=== PATIENT | female | born 1945 | race Caucasian/White ===

== ENCOUNTER → 2017-05-25 04:00 | Outpatient (CLI) | payer MEDICARE, SELFPAY ==
[2017-05-31 14:22] LABS: Occult Blood,Stool Negative (Negative)
== END ==
PROVIDERS: Visit Provider Nurse Practitioner Family
DX: R19.7 Diarrhea, unspecified (principal)
CPT/HCPCS: 82272; G0328

== ENCOUNTER → 2017-05-26 05:00 | Outpatient (CLI) | payer MEDICARE, SELFPAY ==
[2017-05-31 14:22] LABS: Occult Blood,Stool Negative (Negative)
== END ==
PROVIDERS: Visit Provider Nurse Practitioner Family
DX: R19.7 Diarrhea, unspecified (principal)
CPT/HCPCS: 82272; G0328

== ENCOUNTER → 2017-05-27 02:00 | Outpatient (CLI) | payer MEDICARE, SELFPAY ==
[2017-05-31 14:22] LABS: Occult Blood,Stool Negative (Negative)
== END ==
PROVIDERS: Visit Provider Nurse Practitioner Family
DX: R19.7 Diarrhea, unspecified (principal)
CPT/HCPCS: 82272; G0328

== ENCOUNTER → 2017-05-31 13:40 | Outpatient (CLI) | payer MEDICARE, SELFPAY | PROVIDERS: Visit Provider Nurse Practitioner Family | DX: R19.7 Diarrhea, unspecified (principal) ==

== ENCOUNTER → 2017-06-04 14:42 | Outpatient (CLI) | payer MEDICARE, OTHER, SELFPAY | PROVIDERS: Visit Provider Physician Assistant | DX: R19.7 Diarrhea, unspecified (principal) | CPT/HCPCS: 87045 ==

== ENCOUNTER → 2018-07-08 15:45 | Outpatient (CLI) | payer MEDICARE, OTHER, SELFPAY ==
--- NOTE | 2018-07-08 15:50 | MM_ITS ---
MM Dig screening mamm BI w/CAD CAD Screening COMPARISON: Digital mammograms with CAD 11/04/2015 and postbiopsy left mammogram 06/25/2016 INDICATION: There is a history of breast cancer patient maternal grandmother diagnosed after menopause. There has been previous biopsy left breast for benign disease. TECHNIQUE: Standard CC and MLO images were obtained. R2 CAD reviewed. FINDINGS: The breasts are composed almost entirely of fat with very minimal fibro glandular densities in each breast. There is a biopsy clip left breast and there is a mole marker right breast. There is a mole marker left breast. There is no suspicious lesion and there are no suspicious microcalcifications. IMPRESSION: Fatty type breast parenchyma with no suspicious lesion seen BI-RADS Category: 2 Benign Finding(s) RECOMMENDED FOLLOW-UP: 1YR - 1 YEAR FOLLOW-UP (A letter has been sent to the patient regarding results of the study.)
== END ==
PROVIDERS: PCP Family Medicine; Visit Provider Nurse Practitioner Family
DX: Z12.31 Encounter for screening mammogram for malignant neoplasm of breast (principal)
CPT/HCPCS: 77067

== ENCOUNTER → 2019-03-10 12:45 | Outpatient (CLI) | payer MEDICARE, OTHER, SELFPAY ==
--- NOTE | 2019-03-10 | CA_ITS ---
APPROVED REPORT Biogeographer: ALLYSON Laterality: Bilateral Risk Factors Hypertension: Hyperlipidemia Diabetes Smoking Doppler Spectral Velocity Analysis ECA (R) 82.30/9.10 cm/s ECA (L) 142.50/9.60 cm/s dICA (R) 67.60/18.90 cm/s dICA (L) 50.90/11.50 cm/s Grady (R) 77.00/25.40 cm/s Grady (L) 99.20/22.20 cm/s pICA (R) 64.80/18.70 cm/s pICA (L) 102.10/27.90 cm/s dCCA (R) 55.00/15.60 cm/s dCCA (L) 56.10/13.90 cm/s pCCA (R) 71.90/10.30 cm/s pCCA (L) 77.70/17.40 cm/s Vert (R) 50.10/9.40 cm/s Vert (L) 46.20/9.60 cm/s ICA/CCA 1.40 ICA/CCA 1.80 Findings Duplex evaluation demonstrates stenosis of the right proximal internal carotid artery <20% with PSV <140 cm/sec, EDV <100 cm/sec, and IC/CC Ratio <4.0.Duplex evaluation demonstrates stenosis of the left proximal internal carotid artery <20% with PSV <140 cm/sec, EDV <100 cm/sec, and IC/CC Ratio <4.0. Conclusion Duplex evaluation demonstrates stenosis of the right proximal internal carotid artery <20% with PSV <140 cm/sec, EDV <100 cm/sec, and IC/CC Ratio <4.0.Duplex evaluation demonstrates stenosis of the left proximal internal carotid artery <20% with PSV <140 cm/sec, EDV <100 cm/sec, and IC/CC Ratio <4.0. Electronically signed by : Antoine Berumen MD 03/10/2019 17:43:20
--- NOTE | 2019-03-10 13:21 | MR_ITS ---
PROCEDURE: MR HEAD/BRAIN WO CON CLINICAL INDICATION: MEMORY LOSS, DIZZINESS Memory loss and dizziness COMPARISON: No exams were available for comparison TECHNIQUE: Routine multiplanar multi echo sequences are performed without gadolinium enhancement. FINDINGS: No midline shift, mass effect, intracranial hemorrhage, or hydrocephalus. The cerebellopontine angles, cerebellum, brainstem and mid brain have an unremarkable appearance. No evidence of acute infarction. Some nonspecific periventricular and subcortical T2 white matter hyperintensities which do not demonstrate restricted diffusion or enhancement. No enhancing lesions are evident. The hippocampal gyri are unremarkable and the temporal horns are symmetric. No intra-axial or extra-axial hemorrhage. The pituitary, optic chiasm, corpus callosum, and craniocervical junction have an unremarkable appearance. No mastoid effusion or sinus air-fluid level. IMPRESSION: No acute intracranial findings Dictated by: Antoine Berumen MD 03/13/2019 09:27 Electronically signed by Antoine Berumen MD in [place] 03/13/2019 09:27
== END ==
PROVIDERS: PCP Family Medicine; Visit Provider Nurse Practitioner Family
DX: R41.3 Other amnesia (principal); R42 Dizziness and giddiness
CPT/HCPCS: 70551; 93880

== ENCOUNTER → 2019-09-29 07:44 | Outpatient (CLI) | payer MEDICARE, OTHER, SELFPAY ==
--- NOTE | 2019-09-29 07:49 | US_ITS ---
PROCEDURE: US EXTREMITY LT LIMITED CLINICAL INDICATION: LUMP OF LT UPPER EXTREMITY COMPARISON: No exams were available for comparison FINDINGS: General survey is performed of the palpable abnormality in the left arm anteriorly. Real-time images are submitted as well static images. No cyst or solid mass evident. IMPRESSION: Unremarkable ultrasound the left arm in the area of palpable concern. If symptoms persist, consider MRI for further evaluation. Dictated by: Antoine Berumen MD 09/29/2019 08:40 Antoine Berumen MD in [place] 09/29/2019 08:40
== END ==
PROVIDERS: PCP Family Medicine; Visit Provider Nurse Practitioner Family
DX: R22.32 Localized swelling, mass and lump, left upper limb (principal)
CPT/HCPCS: 76882

== ENCOUNTER → 2021-01-06 13:36 | Outpatient (CLI) | payer MEDICARE, OTHER, SELFPAY | PROVIDERS: PCP Nurse Practitioner Family; Visit Provider Urology | DX: E78.5 Hyperlipidemia, unspecified (principal); I10 Essential (primary) hypertension; R06.00 Dyspnea, unspecified; R07.9 Chest pain, unspecified; R94.31 Abnormal electrocardiogram [ECG] [EKG]; Z72.0 Tobacco use; Z82.49 Family history of ischemic heart disease and other diseases of the circulatory system | CPT/HCPCS: 93270 ==

== ENCOUNTER → 2021-01-07 07:05 | Outpatient (CLI) | payer MEDICARE, OTHER, SELFPAY ==
--- NOTE | 2021-01-07 07:06 | NM_ITS ---
APPROVED REPORT Exam: Nuclear Stress Test Indication: Chest pain, SOB, HTN, DM, High cholesterol, Tobacco use, Family history Patient Location: Outpatient Stress Tech: Isabella Coleman [place] Tech:Karen Jones, ARRT, RT (R)(N) Ht: 5 ft 2 in Wt: 170 lbs Bra Size: 38C HR: 52 bpm BP: 141/58 mmHg BSA: 1.78 m2 BMI: 31.0 History: Chest pain, SOB, HTN, DM, High cholesterol, Tobacco use, Family history Procedure: Patient received a 0.4 mg of intravenous Lexiscan, resting heart rate 52 bpm, resting blood pressure 141/58 mmHg, with Lexiscan maximum heart rate achived was 96 bpm which is Less than 85 % of the maximum predicted heart rate and blood pressure was 156/74 mmHg. With Lexiscan, patient denied any complaint of chest pain. Electrocardiogram Resting electrocardiogram shows sinus rhythm, with Lexiscan there is less than 1.[address] segment depression noted from the baseline EKG. The EKG portion of the Lexiscan is nondiagnostic. Cardiac Stress and Resting SPECT Images: Cardiac Stress and Resting SPECT images were obtained using technetium 99m Myoview 30.4 mCi stress and 10.05 mCi at rest. Gated SPECT for analysis of segmental wall motion and calculation of the ejection fraction also done. Prone images were not obtained. Cardiac stress and resting SPECT images show uniform myocardial activity without segmental perfusion abnormality, computer derived ejection fraction is over 50% with no regional wall motion abnormality, right ventricle is normal size and contractility. Computer derived transient ischemic dilatation does not appear to be accurate. Conclusion: 1. The EKG portion of the Lexiscan Myoview is nondiagnostic. 2. No scintigraphic evidence of reversible ischemia seen, computer derived ejection fraction is over 50% with no regional wall motion abnormality, right ventricle is normal size and contractility. 3. Likely normal Lexiscan Myoview study. Electronically signed by : Roc Boykin MD 01/07/2021 19:57:27
--- NOTE | 2021-01-07 07:06 | CA_ITS ---
APPROVED REPORT Exam: Pharmacologic Technologist: Isabella Coleman, Ht: 5 ft 4 in Wt: 177 lbs BSA: 1.86 m2 HR: 51 bpm BP: 141/58 mmHg Rhythm: Sinus vlad, cannot R/O old septal RI, NS ST abn inferiorly Medical History Medical History: HTN, Hyperlipidemia, Diabetic ??? Noninsulin, Smoking Medications: Atenolol,,,,, Simvastatin,,,,, Asa,,,,, Losartan,,,,, PaROXETINE,,,,, LanTUS,,,,, Levocetirizine,,,,, Fexofenadine,,,,, ClonAZapam,,,,, Cardiac Risk Factors: HTN, Hyperlipidemia, Diabetes (non-insulin), FHX of CAD, Smoking Stress Test Details Test: LEXISCAN HR Resting HR: 52 bpm Max Heart Rate (APMHR): 144 bpm Max HR Achieved: 96 bpm Target HR (85% APMHR): 122 bpm % of APMHR: 66 Recovery HR: 69 bpm BP Resting BP: 141/58 mmHg Max BP: 156/74 mmHg Recovery BP: 138.0/46.0 mmHg ECG Resting ECG: Sinus vlad, cannot R/O old septal RI, NS ST abn inferiorly Clinical Exercise duration: 04:05 min Highest Stage Achieved: Exercise capacity: 1.0 METs Stress ECG Conclusion During lexiscan pt experinced SOA and N/V. No CP noted. No arrhythmias noted. Mild exaggeration of baseline abn. Unremarkable lexiscan stress. Myoview images reported separately. Electronically signed by : Roc Boykin MD 01/07/2021 19:39:23
--- NOTE | 2021-01-07 07:06 | CA_ITS ---
APPROVED REPORT EXAM: Comprehensive 2D, Doppler, and color-flow Echocardiogram Graphic Arts Instructor: Maliha Moran RT(R) Ht: 5 ft 4 in Wt: 177lbs BSA: 1.86 BP: 140/70 mmHg Indications: CP, smoker, palpitations, HTN, DM, PARK, family history of HD, abn EKG 2D Dimensions LVOT 1.80 cm (M/F) 1.5-2.5 LVEF (Yoder's) 50.30 % F: 54 - 74 LV Volume 65.80 mL F: 46 - 106 LV Volume Index 35.56 mL/m2 F: 29 - 61 LA Volume 36.00 mL LA Volume Index 19.45 mL/m2 (M/F) 16-34 M-Mode Dimensions RVDd 2.65 cm (0.9-2.6) LA Diam 3.98 cm (1.9-4.0) LVDd 4.15 cm (3.5-5.7) Ao Diam 2.22 cm (2.0-3.7) LVDs 3.04 cm (3.5-5.7) IVSd 0.68 cm (0.6-1.1) PWd 0.75 cm (0.6-1.1) EF (Teich) 52.60% FS 26.70% EDV (Teich) 76.40 mL ESV (Teich) 36.20 mL LV Diastology E Decel Time 237.00 (160-240 msec) E/A Ratio 0.8 MED E' 5.10 (< 7 cm/sec) E'/MED E' Ratio 19.37 (>14) LAT E' 6.60 (<10 cm/sec) E/LAT E' Ratio 14.97 (>14) Mitral Valve MV E Max Addison. 99.00 (40-130 cm/s) MV A Velocity 124.00 (40-130 cm/s) E/A Ratio 0.79 MV Decel. Time 237.00 (160-240 ms) MV PHT 69.00 ms Left Ventricle Left atrium is mildly enlarged, left ventricle is normal size, mild concentric left ventricular hypertrophy, visually estimated ejection fraction 55% with no regional wall motion abnormality. Grade 1 diastolic dysfunction seen with tissue Doppler evidence of raise left atrial pressure. Right Ventricle Right atrium and right ventricle mildly enlarged with normal contractility. Aortic Valve Aortic valve is minimally thickened and fibrosed, there is no aortic stenosis or aortic insufficiency. Mitral Valve Mitral valve is grossly normal, there is trace mitral regurgitation. Tricuspid Valve Tricuspid grossly normal, there is trace tricuspid regurgitation, tricuspid regurgitation jet velocity is inadequate for calculation of the right ventricular systolic pressure. Pulmonic Valve Pulmonic valve is poorly visualized. Great Vessels Aortic root is normal size. Inferior vena cava is normal size with normal inspiratory collapse. Pericardium No significant pericardial effusion noted. Conclusion 1. Biatrial enlargement, normal left ventricular size, mild concentric left ventricular hypertrophy, visually estimated ejection fraction 55% with no regional wall motion abnormality, grade 1 diastolic dysfunction seen with tissue Doppler evidence of raise left atrial pressure. 2. Mildly enlarged right ventricle with normal contractility. 3. Trace mitral and tricuspid regurgitation. 4. No significant pericardial effusion noted. Electronically signed by : Roc Boykin MD 01/07/2021 20:31:23
--- NOTE | 2021-01-07 09:31 | HMH.ITSHM ---
Current Home Medications as stated by this patient Lesli Dang or payable representative. []SIMVASTATIN PAROXETINE LOSARTAN LEVOCERTIRIZINE INSULIN FEXOFENADINE CLONAZEPAM ATENOLOL ASA
== END ==
PROVIDERS: PCP Family Medicine; Visit Provider Urology
DX: E78.5 Hyperlipidemia, unspecified (principal); I10 Essential (primary) hypertension; R06.00 Dyspnea, unspecified; R07.9 Chest pain, unspecified; R94.31 Abnormal electrocardiogram [ECG] [EKG]; Z72.0 Tobacco use; Z82.49 Family history of ischemic heart disease and other diseases of the circulatory system
CPT/HCPCS: 78452; 93017; 93306; A9502; J2785

== ENCOUNTER → 2021-01-28 11:50 | Outpatient (CLI) | payer MEDICARE, OTHER, SELFPAY ==
[2021-01-28 12:33] LABS: Basophils # 0.1 K/mm3 (0-0.2); Basophils % 0.8 % (0.1-2.0); Eosinophils # 0.4 K/mm3 (0.0-0.4); Eosinophils % 3.4 % (0.1-12.0); Hematocrit 45.1 % (37.0-47.0); Hemoglobin 15.5 g/dL (12.2-16.2); Lymphocytes # 2.8 K/mm3 (0.7-4.5); Lymphocytes % 22.6 % (10-50); Mean Corpuscular HGB Conc 34.4 g/dL (31.8-35.4); Mean Corpuscular Volume 92.9 fl (81-99); Mean Platelet Volume 9.1 fl (7.4-10.4); Monocytes # 0.7 K/mm3 (0.1-1.0); Monocytes % 5.7 % (1.7-9.3); Neutrophils # 8.3 K/mm3 (1.8-7.8); Neutrophils % 67.5 % (37.0-80.0); Platelet Count 253 K/mm3 (142-424); Red Blood Count 4.85 M/mm3 (4.20-5.40); Red Cell Distribution Width 13.1 % (11.5-17.5); White Blood Count 12.3 K/mm3 (4.8-10.8)
[2021-01-28 12:49] LABS: Chloride 106 mmol/L (98-107); Sodium 139 mmol/L (136-145)
[2021-01-28 12:50] LABS: Potassium 3.9 mmoL/L (3.5-5.1)
[2021-01-28 12:53] LABS: Anion Gap 12.9 mEq/L (5-15); Blood Urea Nitrogen 11 mg/dl (7-17); Calcium 8.7 mg/dl (8.4-10.2); Carbon Dioxide 24 mmol/L (22.0-30.0); Estimated Glomerular Filt Rate 70 ml/min (>60); GFR (African American) 84 ML/MIN (>60); Glucose 152 mg/dl (74-100)
== END ==
PROVIDERS: Visit Provider Nurse Practitioner Family
DX: E78.5 Hyperlipidemia, unspecified (principal); I10 Essential (primary) hypertension; I20.8 Other forms of angina pectoris; I63.9 Cerebral infarction, unspecified; R06.00 Dyspnea, unspecified; R94.31 Abnormal electrocardiogram [ECG] [EKG]; R94.39 Abnormal result of other cardiovascular function study; Z82.49 Family history of ischemic heart disease and other diseases of the circulatory system
CPT/HCPCS: 36415; 80048; 85025

== ENCOUNTER 2021-02-03 07:33 | Day surgery (SDC) | payer MEDICARE, OTHER, SELFPAY ==
[2021-02-03] VITALS (15 sets, daily range): BP systolic 115–166; BP diastolic 62–86; PULSE 50–64; RESP 13–19; TEMP 36.8; O2SAT 90–98; BMI 29.8
--- NOTE | 2021-02-03 07:06 | IR_ITS ---
APPROVED REPORT Patient Location: Outpatient Observer Electrical Prospecting: CARRILLO Pillai RT (R) PROCEDURES Left heart catheterization Left ventriculogram Selective coronary angiogram Drug-eluting stent deployment to the proximal and mid circumflex artery Drug-eluting stent deployment to the proximal and mid dominant right coronary INDICATION Accelerated angina pectoris, Coronary artery disease, Informed consent was obtained prior to the procedure. COMPLICATIONS NONE Estimated Blood Loss: LESS THAN 10 ML TECHNIQUE One percent lidocaine used to anesthetize the right anterior aspect of the wrist. The right radial artery was accessed via the Seldinger technique. A 6 [place]ic sheath was placed in the right radial artery. 2.5 mg of verapamil, 800 mcg of nitroglycerin, 1mg Lidocaine and 5000 U Heparin were given through the arterial sheath. The trap catheter was also used to perform left heart catheterization, left ventriculogram and selective coronary angiogram. At the end of the procedure therapeutic heparin was administered giving a therapeutic ACT and the guide catheter was placed in the left main artery where a Choice PT extra-support wire was placed distally. A 3 mm x 18 mm resolute Jeferson stent was then deployed in the proximal to mid segment at 20 dulce reducing the 80% concentric stenosis to 0%. MARILEE-3 flow was present before and after the procedure. Following this the guide catheter was placed in the right coronary artery where the same wire was placed distally and a 3 mm x 38 mm resolute [place] stent was deployed at 24 dulce reducing the severe stenosis to 0%. MARILEE-3 flow was present before and after the procedure. At the end the procedure the apparatus was removed the sheath was removed good hemostasis was achieved using TR banding patient was transferred to the postop holding in stable condition ANGIOGRAPHIC RESULTS The left main artery Normal The left anterior descending artery Has proximal and mid vessel diffuse 10% luminal irregularities The circumflex artery Is a nondominant yet still large vessel with a mid vessel concentric 80% stenosis followed by additional 20% stenoses The right coronary artery Is a dominant vessel and has a proximal 20% followed by a proximal to mid vessel concentric 70% stenosis followed by 50% stenosis and then tandem 40% stenoses. The CRUZ ventriculogram reveals Hyperdynamic 75% The left ventricular end-diastolic pressure 30 mmHg IMPRESSION Severe two-vessel coronary disease as described above Successful stenting of the proximal to mid circumflex artery severe disease reduced to 0% with 1 drug-eluting stent Successful stenting of the proximal to mid dominant right coronary artery severe disease reduced to 0% with 1 drug-eluting stent Hyperdynamic ventricle Severely elevated LVEDP PLAN 1. Dual antiplatelet therapy 2. And Lipitor 20 mg a day for coronary artery disease and hyperlipidemia with diabetes 3. Increase losartan from 50 mg a day to 100 mg a day 4. Change atenolol to carvedilol 12.5 mg p.o. twice daily per the Renee trial 5. Cardiac rehabilitation 6. Avoidance of tobacco products 7. Treatment of diastolic dysfunction 8. Patient will require some low-dose diuretics. This should be started as an outpatient Electronically signed by : Amado Javier MD 02/03/2021 10:33:26
[2021-02-03 10:45] LABS: CATHL Activated Clotting Time 316 SEC (74-125)
--- NOTE | 2021-02-03 14:08 | HMH.PHACLD ---
Lesli Dang has received discharge medication counseling on the following medications: PATIENT IS BEING DISCHARGED WITH PRESCRIPTIONS FOR CARVEDILOL 12.5 MG BID (MD STOPPING ATENOLOL), LOSARTAN 100 MG DAILY (MD INCREASING DOSE FROM 50 MG), AND BRILINTA 90 MG BID. PATIENT IS CURRENTLY TAKING ASPIRIN 81 MG CHEWABLE DAILY AND SIMVASTATIN 20 MG HS.
== END 2021-02-03 14:12 | disposition home or self-care (01) ==
LOC: CATHLAB 07:36
PROVIDERS: PCP Nurse Practitioner Family; Visit Provider Internal Medicine
DX: E78.5 Hyperlipidemia, unspecified (principal); I10 Essential (primary) hypertension; I25.118 Atherosclerotic heart disease of native coronary artery with other forms of angina pectoris; R06.00 Dyspnea, unspecified; R94.31 Abnormal electrocardiogram [ECG] [EKG]; R94.39 Abnormal result of other cardiovascular function study; Z82.49 Family history of ischemic heart disease and other diseases of the circulatory system; E11.9 Type 2 diabetes mellitus without complications; Z79.4 Long term (current) use of insulin; Z79.899 Other long term (current) drug therapy; Z20.822 Contact with and (suspected) exposure to COVID-19
CPT/HCPCS: 85347; 92928; 93458; 99152; C1725; C1769; C1874; C1876; C9600; C9803; J1644; Q9967; U0003; U0005

== ENCOUNTER → 2021-02-03 08:07 | Outpatient (CLI) | payer MEDICARE, OTHER, SELFPAY ==
[2021-02-03 08:11] LABS: Coronavirus 19, PCR Not Detected (NotDetected); Influenza A, PCR Not Detected (NotDetected); Influenza B, PCR Not Detected (NotDetected)
== END ==
PROVIDERS: Visit Provider Internal Medicine
DX: Z20.822 Contact with and (suspected) exposure to COVID-19 (principal)
CPT/HCPCS: C9803; U0003; U0005

== ENCOUNTER → 2021-03-03 12:16 | Outpatient (CLI) | payer MEDICARE, OTHER, SELFPAY ==
[2021-03-03 13:00] LABS: Basophils # 0.2 K/mm3 (0-0.2); Basophils % 1.9 % (0.1-2.0); Eosinophils # 0.5 K/mm3 (0.0-0.4); Hematocrit 50.8 % (37.0-47.0); Hemoglobin 16.3 g/dL (12.2-16.2); Mean Corpuscular Hemoglobin 31.6 pg (27.0-31.2); Mean Corpuscular Volume 98.8 fl (81-99); Mean Platelet Volume 9.1 fl (7.4-10.4); Monocytes # 0.6 K/mm3 (0.1-1.0); Monocytes % 4.8 % (1.7-9.3); Neutrophils # 7.7 K/mm3 (1.8-7.8); Neutrophils % 64.3 % (37.0-80.0); Platelet Count 286 K/mm3 (142-424); Red Blood Count 5.15 M/mm3 (4.20-5.40); Red Cell Distribution Width 13.4 % (11.5-17.5)
[2021-03-03 14:07] LABS: Alanine Aminotransferase 38 U/L (12-78); Albumin Level 4.4 g/dl (3.5-5.0); Alkaline Phosphatase 90 U/L (38-126); Aspartate Amino Transferase 45 U/L (14-36); Bilirubin,Direct 0.2 mg/dl (0.0-0.4); Bilirubin,Indirect 0.3 mg/dL (0.0-0.9); Bilirubin,Total 0.5 mg/dl (0.2-1.3); Bilirubin,Unconjugated 0.3 mg/dL (0.0-1.1); Blood Urea Nitrogen 20 mg/dl (7-17); Calcium 9.1 mg/dl (8.4-10.2); Carbon Dioxide 21 mmol/L (22.0-30.0); Chloride 103 mmol/L (98-107); Cholesterol 165 mg/dl (140-200); Estimated Glomerular Filt Rate 54 ml/min (>60); GFR (African American) 65 ML/MIN (>60); Glucose 174 mg/dl (74-100); HDL Cholesterol 33 mg/dl (40-60); Sodium 134 mmol/L (136-145); Total Protein,Serum 7.9 g/dl (6.3-8.2); Triglycerides 293 mg/dl (30-150); VLDL Cholesterol 59 mg/dL (0-40)
[2021-03-03 14:18] LABS: Direct LDL Cholesterol 90.03 mg/dL (100-129)
== END ==
PROVIDERS: PCP Nurse Practitioner Family; Visit Provider Physician Assistant
DX: E78.2 Mixed hyperlipidemia (principal); I10 Essential (primary) hypertension; I25.10 Atherosclerotic heart disease of native coronary artery without angina pectoris; R06.00 Dyspnea, unspecified; R94.31 Abnormal electrocardiogram [ECG] [EKG]
CPT/HCPCS: 36415; 80048; 80061; 80076; 85025

== ENCOUNTER 2021-04-13 14:45 | Observation (INO) | payer MEDICARE, OTHER, SELFPAY ==
[2021-04-13 14:57] VITALS: BP 129/62; PULSE 82; O2SAT 91
[2021-04-13 15:09] VITALS: BP 116/56; PULSE 81; RESP 16; TEMP 36.9; O2SAT 93; BMI 29.9
[2021-04-13 15:30] VITALS: BP 126/60; PULSE 78; O2SAT 96
--- NOTE | 2021-04-13 15:48 | CT_ITS ---
PROCEDURE INFORMATION: Exam: CT Abdomen And Pelvis Without Contrast Exam date and time: 04/13/2021 3:48 PM Age: 75 years old Clinical indication: Other: Rectal bleeding, abdominal pain. ; Additional info: Rectal bleeding/abd pain TECHNIQUE: Imaging protocol: Computed tomography of the abdomen and pelvis without contrast. Radiation optimization: All CT scans at this facility use at least one of these dose optimization techniques: automated exposure control; mA and/or kV adjustment per patient size (includes targeted exams where dose is matched to clinical indication); or iterative reconstruction. COMPARISON: US EXTREMITY LT LIMITED 09/29/2019 7:53 AM FINDINGS: Lungs: Scarring/atelectasis at the lung bases without acute findings. Diaphragm: A small hiatal hernia is present. Liver: The liver demonstrates punctate calcifications, consistent with remote granulomatous organism exposure. The liver is otherwise unremarkable. Gallbladder and bile ducts: Multiple calcified gallstones are present. The gallbladder is otherwise unremarkable. There is no evidence of biliary ductal dilation. Pancreas: Normal. No ductal dilation. Spleen: The spleen demonstrates punctate calcifications, consistent with remote granulomatous organism exposure. The spleen is otherwise unremarkable. Adrenal glands: 2.1 cm left adrenal nodule with Hounsfield units of -7.7. This is compatible with a benign adenoma. Mild senile thickening of the right adrenal gland. Adrenal glands otherwise unremarkable. Kidneys and ureters: Normal. No hydronephrosis. Stomach and bowel: Wall thickening and submucosal edema with pericolonic fat stranding appreciated throughout the descending colon. No other segmental bowel wall thickening. Moderate constipation. There is no evidence of intestinal obstruction. Appendix: Normal appendix. Intraperitoneal space: There is no evidence of free intraperitoneal or pelvic fluid. There is no free intraperitoneal air. Vasculature: The vasculature demonstrates diffuse moderate atherosclerotic calcification. Lymph nodes: No retroperitoneal, pelvic, or mesenteric adenopathy. Urinary bladder: The bladder is decompressed. Reproductive: There has been a hysterectomy. Bones/joints: No acute skeletal pathology. Moderate multilevel degenerative changes of the spine, as manifested by multilevel anterior osteophytes and multilevel decrease in intervertebral disc space. Soft tissues: Calcified injection granulomas are noted in the subcutaneous tissues of the buttocks. IMPRESSION: 1. Moderate to severe acute colitis involving predominantly the descending colon. 2. No bowel obstruction or bowel perforation. 3. Incidental findings as above. COMMENTS: Consistent with the [employer]'s Incidental Findings Committee white paper (J Am Irina Radiol 2017): For any incidental adrenal lesion greater than 1 cm but less than 4 cm classified in this report as benign, likely benign, or containing fat (including classification as an adenoma or myelolipoma), no follow-up imaging is recommended per consensus recommendations based on imaging criteria. Further lab evaluation could be pursued if warranted based on clinical findings.
--- NOTE | 2021-04-13 15:48 | HMH.EDGENADL ---
ED Disposition Clinical Impression: Colitis, Rectal bleeding Disposition: Admitted As Inpatient Condition on Discharge: Fair - Critical Care Critical Care Time: No Attestation: On 04/13/21, the high probability of a clinically significant, sudden or life threatening deterioration of the following system(s) required my full and direct attention, intervention and personal management. The time I documented below is in addition to time spent performing reported procedures but includes the following listed in this critical care notation. Medical Decision Making - Festus Inquiry Pt receiving controlled substance: No Vital Signs: 04/13/21 14:57 04/13/21 15:09 04/13/21 15:30 Temperature 98.5 F Temperature Source Oral Pulse Rate 82 78 Pulse Rate [Left Radial] 81 Respiratory Rate 16 Blood Pressure 129/62 126/60 Blood Pressure [Right Arm] 116/56 L Blood Pressure Mean [Right Arm] 76 02 Sat by Pulse Oximetry 91 L 93 L 96 Oxygen Delivery Method Room Air 04/13/21 18:26 Temperature 98.5 F Temperature Source Oral Pulse Rate 74 Pulse Rate [Left Radial] Respiratory Rate 16 Blood Pressure 121/71 Blood Pressure [Right Arm] Blood Pressure Mean [Right Arm] 02 Sat by Pulse Oximetry Oxygen Delivery Method Room Air - Lab Data Lab Results 04/13/21 16:00: Stool Occult Blood Positive A 04/13/21 16:03: WBC 17.2 H, RBC 4.47, Hgb 14.2, Hct 44.2, MCV 98.7, MCH 31.8 H, MCHC 32.2, RDW 13.8, Plt Count 302, MPV 8.7, Neut % (Auto) 81.6 H, Lymph % (Auto) 11.6, [place] % (Auto) 4.1, Eos % (Auto) 2.0, Baso % (Auto) 0.7, Neut # (Auto) 14.0 H, Lymph # (Auto) 2.0, [place] # (Auto) 0.7, Eos # (Auto) 0.4, Baso # (Auto) 0.1, Total Counted 100, Neutrophils % (Manual) 76, Lymphocytes % (Manual) 17, Monocytes % (Manual) 7, Platelet Estimate Normal, Hypochromasia 1+ 04/13/21 16:03: PT 11.6, INR 1.03 04/13/21 16:03: Sodium 130 L, Potassium 4.5, Chloride 100, Carbon Dioxide 21 L, Anion Gap 13.5, BUN 20 H, Creatinine 1.30 H, Estimated Creat Clear 43, Estimated GFR 40 L, Est GFR ( Amer) 48 L, Glucose 199 H, Calcium 8.4, Total Bilirubin 1.1, AST 32, ALT 31, Alkaline Phosphatase 90, Total Protein 7.7, Albumin 3.9, Globulin 3.8 H, Albumin/Globulin Ratio 1.0 L 04/13/21 18:00: SARS-CoV-2 (PCR) Not detected, Influenza A Untype (PCR) Not detected, Influenza Type B (PCR) Not detected Result diagrams: 04/13/21 16:03 04/13/21 16:03 Orders (Tests/Meds): ED MEDICATIONS Generic Name Dose Route Start Last Admin Trade Name Freq PRN Reason Stop Dose Admin Acetaminophen 650 mg 04/13/21 19:37 Acetaminophen 325mg Tab PO 05/13/21 19:36 Q4HP PRN Fever or Mild Pain Carvedilol 12.5 mg 04/13/21 21:00 Carvedilol 12.5mg Tablet PO 05/13/21 20:59 BID [facility] Ertapenem 1 gm/ Sodium 50 mls @ 100 mls/hr 04/14/21 17:45 Chloride IV 04/27/21 17:44 Q24H JOE Metronidazole 500 mg in 100 mls @ 100 mls/hr 04/14/21 01:45 Flagyl 500mg/100ml Ivpb IV 04/27/21 17:44 Q8H JOE Sodium Chloride 1,000 mls @ 75 mls/hr 04/13/21 19:45 Sod Chlor 0.9% 1000ml Bag IV 05/13/21 19:44 .[id number] [facility] Insulin Human Lispro 0 unit 04/13/21 21:00 Humalog 100 Units/Ml 3ml Vial (Ssi) SQ 05/13/21 20:59 ACHS JOE Protocol Morphine Sulfate 4 mg 04/13/21 19:37 Morphine 4mg/Ml Syringe IV 05/13/21 19:36 Q4HP PRN Severe Pain Non-Formulary Medication 100 mg 04/13/21 19:37 Losartan Potassium [Cozaar 50mg Tablets] PO 05/13/21 19:36 QDAY JOE Non-Formulary Medication 30 mg 04/13/21 19:37 Paroxetine Hcl [Paroxetine Hcl] PO 05/13/21 19:36 ONCE JOE Non-Formulary Medication 20 mg 04/14/21 09:00 Simvastatin PO 05/14/21 08:59 DAILY JOE Non-Formulary Medication 50 mg 04/14/21 09:00 Spironolactone PO 05/14/21 08:59 DAILY JOE Ondansetron HCl 4 mg 04/13/21 19:37 Ondansetron 4mg/2ml Vial IV 05/13/21 19:36 Q8HP PRN Nausea Sodium Chloride 10 ml
[2021-04-13 16:03] LABS: Occult Blood,Stool Positive (Negative)
[2021-04-13 16:12] LABS: Basophils # 0.1 K/mm3 (0-0.2); Basophils % 0.7 % (0.1-2.0); Eosinophils # 0.4 K/mm3 (0.0-0.4); Hematocrit 44.2 % (37.0-47.0); Hemoglobin 14.2 g/dL (12.2-16.2); Lymphocytes % 11.6 % (10-50); Mean Corpuscular HGB Conc 32.2 g/dL (31.8-35.4); Mean Corpuscular Hemoglobin 31.8 pg (27.0-31.2); Mean Corpuscular Volume 98.7 fl (81-99); Mean Platelet Volume 8.7 fl (7.4-10.4); Monocytes # 0.7 K/mm3 (0.1-1.0); Monocytes % 4.1 % (1.7-9.3); Neutrophils % 81.6 % (37.0-80.0); Platelet Count 302 K/mm3 (142-424); Red Blood Count 4.47 M/mm3 (4.20-5.40); Red Cell Distribution Width 13.8 % (11.5-17.5); White Blood Count 17.2 K/mm3 (4.8-10.8)
[2021-04-13 16:23] LABS: MANUAL DIFFERENTIAL MANUAL DIFFERENTIAL (MANUAL DIFF)
[2021-04-13 16:25] LABS: Chloride 100 mmol/L (98-107); Potassium 4.5 mmoL/L (3.5-5.1); Sodium 130 mmol/L (136-145)
[2021-04-13 16:28] LABS: Alanine Aminotransferase 31 U/L (12-78); Albumin Level 3.9 g/dl (3.5-5.0); Alkaline Phosphatase 90 U/L (38-126); Anion Gap 13.5 mEq/L (5-15); Aspartate Amino Transferase 32 U/L (14-36); Bilirubin,Total 1.1 mg/dl (0.2-1.3); Blood Urea Nitrogen 20 mg/dl (7-17); Carbon Dioxide 21 mmol/L (22.0-30.0); Creatinine Clearance Estimated 43 mL/min (50-200); Estimated Glomerular Filt Rate 40 ml/min (>60); GFR (African American) 48 ML/MIN (>60); Globulin 3.8 g/dL (1.3-3.2); Total Protein,Serum 7.7 g/dl (6.3-8.2)
[2021-04-13 16:29] LABS: Calcium 8.4 mg/dl (8.4-10.2); Glucose 199 mg/dl (74-100)
[2021-04-13 16:30] LABS: INR 1.03 (0.9-1.1); Prothrombin Time 11.6 seconds (10.1-12.5)
[2021-04-13 16:56] LABS: Hypochromasia 1+; Lymphocytes % 17 % (10-50); Monocytes % 7 % (2-9); Neutrophils % 76 % (42-76); Platelet Estimate Normal; Total Cells Counted 100
--- NOTE | 2021-04-13 17:38 | PC.NURSE ---
Talking to about admission
[2021-04-13 18:26] VITALS: BP 121/71; PULSE 74; RESP 16; TEMP 36.9; O2SAT 94
[2021-04-13 18:30] LABS: Coronavirus 19, PCR Not Detected (NotDetected); Influenza A, PCR Not Detected (NotDetected); Influenza B, PCR Not Detected (NotDetected)
[2021-04-13 18:48] VITALS: BP 107/58; PULSE 70; RESP 16; TEMP 36.5; O2SAT 94; BMI 28.3
[2021-04-13 20:00] VITALS: BP 103/41; PULSE 66; RESP 18; TEMP 36.4; O2SAT 93
[2021-04-13 20:49] LABS: POC Glucose,Bedside 150 (70-110)
[2021-04-14 04:00] VITALS: BP 119/46; PULSE 64; RESP 16; TEMP 36.6; O2SAT 90
--- NOTE | 2021-04-14 04:00 | PC.NURSE ---
Pt is A/O x4, pt voiced no c/o of pain/N/V throughout the night. Pt did not have a BM this shift thus far, but is aware that we need a sample when she is able to. Pt can independently get up and go the bathroom. Pt remains on RA with O2 >90%.
[2021-04-14 05:01] VITALS: BMI 28.0
[2021-04-14 05:32] LABS: POC Glucose,Bedside 115 (70-110)
[2021-04-14 06:14] LABS: Basophils # 0.1 K/mm3 (0-0.2); Basophils % 0.6 % (0.1-2.0); Eosinophils # 0.4 K/mm3 (0.0-0.4); Eosinophils % 2.6 % (0.1-12.0); Hematocrit 41.3 % (37.0-47.0); Hemoglobin 13.4 g/dL (12.2-16.2); Lymphocytes # 3.3 K/mm3 (0.7-4.5); Lymphocytes % 23.6 % (10-50); Mean Corpuscular HGB Conc 32.4 g/dL (31.8-35.4); Mean Corpuscular Hemoglobin 32.5 pg (27.0-31.2); Mean Corpuscular Volume 100.4 fl (81-99); Mean Platelet Volume 8.8 fl (7.4-10.4); Monocytes # 0.8 K/mm3 (0.1-1.0); Monocytes % 5.9 % (1.7-9.3); Neutrophils # 9.5 K/mm3 (1.8-7.8); Neutrophils % 67.3 % (37.0-80.0); Platelet Count 223 K/mm3 (142-424); Red Blood Count 4.11 M/mm3 (4.20-5.40); Red Cell Distribution Width 13.8 % (11.5-17.5); White Blood Count 14.1 K/mm3 (4.8-10.8)
--- NOTE | 2021-04-14 07:32 | HMH.PHAVTE ---
[facility] Pharmacy VTE Monitoring - Patient Demographics Admission date: 04/13/21 Report Date: 04/14/21 Time: 07:32 Allergies/Adverse Reactions: Patient Allergies Penicillins Allergy (Intermediate, Verified 04/13/21 21:39) I-RASH Sulfa (Sulfonamide Antibiotics) Allergy (Intermediate, Verified 04/13/21 21:39) I-HIVES Height: 1.6 m Weight: 71.631 kg Patient Problems: Current Active Problems (Last Updated 02/17/21 @ 11:58 by Hiwot Pittman RN) Colitis (Acute) Rectal bleeding (Acute) - VTE Risk Labs: VTE Related Lab Results Hgb 13.4 g/dL (12.2-16.2) 04/14/21 06:00 Hct 41.3 % (37.0-47.0) 04/14/21 06:00 Plt Count 223 K/mm3 (142-424) D 04/14/21 06:00 PT 11.6 seconds (10.1-12.5) 04/13/21 16:03 INR 1.03 (0.9-1.1) 04/13/21 16:03 BUN 20 mg/dl (7-17) H 04/13/21 16:03 Creatinine 1.30 mg/dl (0.52-1.04) H 04/13/21 16:03 Estimated Creat Clear 43 mL/min (50-200) 04/13/21 16:03 Was VTE Risk Assessment Performed: No VTE Score: 4 VTE Risk Level: Low Risk Clinical Trial Participant: No - Prophylaxis VTE Prophylaxis Ordered?: Yes Types of VTE Prophylaxis: TEDS Knee High
--- NOTE | 2021-04-14 07:36 | HMH.HPDC ---
General - General Admission date:: 04/13/21 Discharge date: 04/14/21 *Admission Date: 04/13/21 *Chief complaint: Blood in stool *History of present illness: 75-year-old female presented to the emergency department yesterday with 24 hours of bright red blood in her stool. Patient reports symptoms began on Wednesday, April 12 and this had been preceded by 3-day course of diarrhea. She never had fevers. She denies any significant abdominal pain. Patient was able to maintain her appetite. She has no history of blood in her stool. It has been 14 years since her last colonoscopy. Family became concerned because of the passage of blood and she presented to the emergency department. Patient underwent CT scan which showed some descending colitis. She was afebrile. She had mild leukocytosis. She was admitted and placed on Invanz and Flagyl. [facility] History I have reviewed the patient's past medical history: Yes Medical History: Reports:: Diabetes Mellitus Type 2, Hyperlipidemia, Hypertension Denies:: Cancer, Diabetes Mellitus Type 1, Internal Pacemaker, Lung Disease, MRSA, Seizures *Have you ever received a pneumonia vaccine?: Yes *Have you received a flu vaccine this season?: Yes Other Surgeries: Yes: Cardiac Catheterization, Dilation and Curettage. No: Pacemaker Amputation: No Fractures: No - *Social History Smoking Status: Current every day smoker Tobacco Type: cigarettes # Packs/Day (cigarettes): 1 Alcohol Intake: never Substance Use Type: denies use *Occupational Status:: retired Housing: house Household Members: none *Travel in the last 8 weeks: None Family Hx:: No significant family history Review of Systems - Review of Systems Review of systems:: pertinent systems reviewed and negative unless documented below Exam Vital signs and Labs for Last 24 Hours: Temp Pulse Resp BP Pulse Ox 97.9 F 64 16 119/46 L 90 L 04/14/21 04:00 04/14/21 04:00 04/14/21 04:00 04/14/21 04:00 04/14/21 04:00 Laboratory Results - last 24 hr 04/13/21 16:00: Stool Occult Blood Positive A 04/13/21 16:03: WBC 17.2 H, RBC 4.47, Hgb 14.2, Hct 44.2, MCV 98.7, MCH 31.8 H, MCHC 32.2, RDW 13.8, Plt Count 302, MPV 8.7, Neut % (Auto) 81.6 H, Lymph % (Auto) 11.6, [place] % (Auto) 4.1, Eos % (Auto) 2.0, Baso % (Auto) 0.7, Neut # (Auto) 14.0 H, Lymph # (Auto) 2.0, [place] # (Auto) 0.7, Eos # (Auto) 0.4, Baso # (Auto) 0.1, Total Counted 100, Neutrophils % (Manual) 76, Lymphocytes % (Manual) 17, Monocytes % (Manual) 7, Platelet Estimate Normal, Hypochromasia 1+ 04/13/21 16:03: PT 11.6, INR 1.03 04/13/21 16:03: Sodium 130 L, Potassium 4.5, Chloride 100, Carbon Dioxide 21 L, Anion Gap 13.5, BUN 20 H, Creatinine 1.30 H, Estimated Creat Clear 43, Estimated GFR 40 L, Est GFR ( Amer) 48 L, Glucose 199 H, Calcium 8.4, Total Bilirubin 1.1, AST 32, ALT 31, Alkaline Phosphatase 90, Total Protein 7.7, Albumin 3.9, Globulin 3.8 H, Albumin/Globulin Ratio 1.0 L 04/13/21 18:00: SARS-CoV-2 (PCR) Not detected, Influenza A Untype (PCR) Not detected, Influenza Type B (PCR) Not detected 04/13/21 20:37: POC Glucose 150 H 04/14/21 05:19: POC Glucose 115 H 04/14/21 06:00: WBC 14.1 H, RBC 4.11 L, Hgb 13.4, Hct 41.3, MCV 100.4 H, MCH 32.5 H, MCHC 32.4, RDW 13.8, Plt Count 223 D, MPV 8.8, Neut % (Auto) 67.3, Lymph % (Auto) 23.6, [place] % (Auto) 5.9, Eos % (Auto) 2.6, Baso % (Auto) 0.6, Neut # (Auto) 9.5 H, Lymph # (Auto) 3.3, [place] # (Auto) 0.8, Eos # (Auto) 0.4, Baso # (Auto) 0.1 I & O for Last 24 hours: Intake & Output 04/11/21 04/12/21 04/13/21 04/14/21 11:59 11:59 11:59 11:59 Output Total 100 / 100 Balance -100 / -100 Weight 157 lb 14.709 oz - Constitutional no acute distress - *Routine HEENT Exam Head: Present: normocephalic Eye: Present: EOMI, PERRL ENT: Present: mucous membranes moist - *Routine Neck Exam Present: supple. Absent: lymphadenopathy - *Routine Respiratory Exam Present: CTA bilaterally - *Routine Cardiovascular Exam Present
[2021-04-14 08:00] VITALS: BP 114/42; PULSE 58; RESP 18; TEMP 36.4; O2SAT 93
--- NOTE | 2021-04-14 10:14 | HMH.PHAINT ---
HOME MEDICATION LIST VERIFIED USING LIST FROM DR BARRERA' OFFICE, CARDIOLOGY OFFICE AND PT INTERVIEW
[2021-04-14 11:46] LABS: POC Glucose,Bedside 108 (70-110)
--- NOTE | 2021-04-15 14:44 | CARE MANAGER ---
Contacted patient regarding follow up to discharge from hospital. Patient states she was not prescribed home with any new medications. She states she has eaten fruit and oatmeal. Discussed the effect of raw fruits and vegetables on her digestive system and to do a soft bland diet for a while until her colon was less inflamed. She states she is going to the doctor this afternoon at 3pm to follow up. LESLIE Rock
== END 2021-04-14 13:08 | disposition home or self-care (01) ==
LOC: ER 14:56 → 2ND 18:22
PROVIDERS: Admitting Provider Emergency Medicine; Emergency Provider Emergency Medicine; PCP Nurse Practitioner Family; Visit Provider Family Medicine
DX: K52.9 Noninfective gastroenteritis and colitis, unspecified (principal); E11.9 Type 2 diabetes mellitus without complications; Z79.4 Long term (current) use of insulin; Z79.899 Other long term (current) drug therapy; I10 Essential (primary) hypertension; E78.5 Hyperlipidemia, unspecified; F17.210 Nicotine dependence, cigarettes, uncomplicated; Z79.01 Long term (current) use of anticoagulants; Z20.822 Contact with and (suspected) exposure to COVID-19
CPT/HCPCS: G0378; 36415; 74176; 80053; 82272; 82962; 85007; 85025; 85610; 99285; C9803; G0328; J1335; U0003; U0005

== ENCOUNTER → 2021-08-06 13:59 | Outpatient (CLI) | payer MEDICARE, OTHER, SELFPAY | PROVIDERS: PCP Nurse Practitioner Family; Visit Provider Surgery | DX: Z01.812 Encounter for preprocedural laboratory examination (principal); Z20.822 Contact with and (suspected) exposure to COVID-19; Z12.11 Encounter for screening for malignant neoplasm of colon | CPT/HCPCS: C9803; U0003; U0005 ==

== ENCOUNTER 2021-08-08 10:18 | Day surgery (SDC) | payer MEDICARE, OTHER, SELFPAY ==
[2021-08-04 13:27] VITALS: BMI 30.1
[2021-08-08] VITALS (7 sets, daily range): BP systolic 96–158; BP diastolic 56–80; PULSE 64–81; RESP 16–20; TEMP 36.1; O2SAT 94–97
--- NOTE | 2021-08-08 11:31 | HMH.ANESCL ---
[facility] Anesthesia Checklist - Structural Data Planned Operative Procedure/s: Colonoscopy Consent for Planned Operative Procedure(s) Verified: Yes - NPO Status Verified Time NPO: 07:00 - Additional verifications Anesthesia Reactions: Yes (nausea, vomiting) - Airway Assessment C-Spine Mobility Assessed: Yes TMJ Mobility Assessed: Yes Dentition: Dentures-good fit - Neurological Assessment Level of Consciousness: Awake Hx Seizures: No Numbness or tingling in extremities: No - Anesthesia Plan Anesthesia Risk discussed: Yes Anesthesia Plan: Verified ASA Class: III Anesthesia Type: MAC [facility] History I have reviewed the patient's past medical history: Yes Medical History: Reports:: Diabetes Mellitus Type 2, Hyperlipidemia, Hypertension Denies:: Cancer, Diabetes Mellitus Type 1, Internal Pacemaker, Lung Disease, MRSA, Seizures *Have you ever received a pneumonia vaccine?: Yes *Have you received a flu vaccine this season?: Yes Anesthesia experience/problems:: PONV Other Surgeries: Yes: Cardiac Catheterization, Dilation and Curettage. No: Pacemaker Amputation: No Fractures: No - *Social History Last grade of school completed: 11th or 12th Smoking Status: Current every day smoker Tobacco Type: cigarettes # Packs/Day (cigarettes): 1 Alcohol Intake: never Substance Use Type: denies use *Occupational Status:: retired Housing: house Household Members: none *Travel in the last 8 weeks: None Family Hx:: No significant family history
[2021-08-08 11:37] LABS: POC Glucose,Bedside 151 (70-110)
--- NOTE | 2021-08-08 12:56 | P.PCN_ITS ---
- Procedure: Date: 08/08/21 Patient Date of :: 1945 Procedure Performed:: Total colonoscopy with numerous polypectomy Indications:: Patient is a 75-year-old female. She had been admitted in April with diarrhea and rectal bleeding. CT scan revealed evidence of colitis. She was scheduled for colonoscopy. Those symptoms had resolved. She states that her last colonoscopy was many years ago. Performing Provider:: Lawrence Jesus MD Referring Provider:: Brittni Brady Sedation:: MAC sedation Procedure:: Patient was taken to the endoscopy procedure room. She was positioned in lateral decubitus position. Adequate intravenous sedation was achieved with anesthesia titration of propofol. Variable stiffness Olympus colonoscope was inserted via the anus. Particulate stool was immediately encountered. Colonoscope was ultimately advanced to the cecum which required some abdominal pressure due to redundancy of the sigmoid colon. Colonic preparation was fair as there was opaque liquid and particulate liquid stool throughout the colon. With thorough irrigation and suctioning this allowed for some visualization but this was suboptimal. Colonoscope was slowly withdrawn through the colon with careful surveillance. There were several polyps encountered. These were removed with a variety of technique. Please see findings below. Retroflexion was unable to be performed within the rectum. Colonoscope was withdrawn. Findings:: She had a rather large ridge polyp in the descending colon which was removed w ith hot snare. It appeared to be removed in its entirety and the area was injected with a limited amount of Liliana ink for marking and And proximal sigmoid colon there were 4 polyps removed. 2 of these were removed with hot snare and 2 with cold snare. In the mid sigmoid colon there was a polyp removed with cold snare Distal sigmoid colon there were a couple of polyps removed with cold snare At the rectosigmoid region there was a polyp removed with hot snare. She had a total of at least 9 polyps. Most notable polyp was descending colon polyp which was a moderate ridge polyp requiring removal with hot snare and injection of Liliana ink No evidence of any colitis. Colonic preparation was fair and suboptimal Recommendations:: Follow-up colonoscopy pending pathology. Given the number of polyps, several of which appeared complex, and suboptimal preparation likely 1 to 2 years Complications:: None immediately apparent Estimated blood obtained (mL): 3
== END 2021-08-08 13:51 | disposition home or self-care (01) ==
LOC: OUTP 10:19
PROVIDERS: PCP Nurse Practitioner Family; Visit Provider Surgery
PROC: 0DJD8ZZ Inspection of Lower Intestinal Tract, Via Natural or Artificial Opening Endoscopic (ICD-10-PCS; principal; 2021-08-08 11:30)
DX: K63.5 Polyp of colon; E11.9 Type 2 diabetes mellitus without complications; E78.5 Hyperlipidemia, unspecified; I10 Essential (primary) hypertension; Z72.0 Tobacco use; Z79.4 Long term (current) use of insulin; Z79.899 Other long term (current) drug therapy; Z87.19 Personal history of other diseases of the digestive system
CPT/HCPCS: 45385; 82962; 88305; J2405; J2704

== ENCOUNTER → 2021-12-02 07:41 | Outpatient (CLI) | payer MEDICARE, OTHER, SELFPAY ==
--- NOTE | 2021-12-02 07:51 | CA_ITS ---
FINAL REPORT TECHNIQUE: Grayscale, color Doppler and duplex Doppler ultrasound of the kidneys, aorta and renal arteries was performed. Multiple velocities were measured. CLINICAL HISTORY: .HTN FINDINGS: Aorta velocity: 102 cm/sec Right kidney: 9.5 cm. No evidence of hydronephrosis or mass. Right intrarenal RI: Borderline elevated at 0.83 Right renal artery velocity: 259 cm/sec. Right RAR (Renal artery-Aortic Ratio): 2.5 Left Kidney: 9.1 cm. No evidence of hydronephrosis or mass. Left intrarenal RI: Borderline elevated at 0.83 Left renal artery velocity: 2.6 cm/sec. Left RAR (Renal Artery-Aortic Ratio): 263 IMPRESSION: Findings consistent with bilateral less than 50% renal artery stenosis. Consider CT angiogram or postcontrast MR angiogram would be more sensitive for evaluation of possible renal artery stenosis. Borderline abnormal RI bilaterally. Reviewed, Interpreted and Dictated by Lawrence Peralta III, MD Transcribed by Tori Coreas Authenticated and . [facility]
--- NOTE | 2021-12-02 08:40 | US_ITS ---
FINAL REPORT TECHNIQUE: Ultrasound images of the kidneys and bladder were obtained. CLINICAL HISTORY: BEGNIGN ESSENTIAL HYPERTENSION FINDINGS: The right kidney measures 9.6 cm in length. It is normal in echogenicity. There is no hydronephrosis. The left kidney measures 9.2 cm in length. It is normal in echogenicity. There is no hydronephrosis. The spleen is unremarkable. IMPRESSION: Unremarkable renal ultrasound. Reviewed, Interpreted and Dictated by Lawrence Peralta III, MD Transcribed by Felicia Thao Authenticated and . [facility]
== END ==
PROVIDERS: PCP Nurse Practitioner Family; Visit Provider Internal Medicine Nephrology
DX: I10 Essential (primary) hypertension (principal)
CPT/HCPCS: 76770; 93976

== ENCOUNTER → 2022-01-07 13:10 | Outpatient (CLI) | payer MEDICARE, OTHER, SELFPAY ==
[2022-01-07 13:30] LABS: Microscopic, Urine URINE MICROSCOPIC (MICROSCOPIC)
--- NOTE | 2022-01-07 13:44 | XR_ITS ---
FINAL REPORT CLINICAL HISTORY: LOW BACK INJURY,LOW BACK PAIN x fall 2 weeks ago FINDINGS: LUMBAR SPINE Five views were obtained. There is no acute fracture. There is no malalignment. There is moderate disc space narrowing at L3-4. There is mild loss of height involving the superior endplate of L3, loss of height measures about 10%. There is no soft tissue abnormality. IMPRESSION: Moderate disc space narrowing at L3-4. No acute bony abnormality. Reviewed, Interpreted and Dictated by Geovanny Donato MD Transcribed by Clarissa Monahan Authenticated and [facility]
[2022-01-07 14:10] LABS: Basophils # 0.1 K/mm3 (0-0.2); Basophils % 0.5 % (0.1-2.0); Eosinophils # 0.3 K/mm3 (0.0-0.4); Eosinophils % 2.5 % (0.1-12.0); Hematocrit 42.5 % (37.0-47.0); Hemoglobin 13.4 g/dL (12.2-16.2); Lymphocytes # 3.1 K/mm3 (0.7-4.5); Lymphocytes % 29.7 % (10-50); Mean Corpuscular HGB Conc 31.5 g/dL (31.8-35.4); Mean Corpuscular Hemoglobin 31.2 pg (27.0-31.2); Mean Corpuscular Volume 99.1 fl (81-99); Mean Platelet Volume 8.8 fl (7.4-10.4); Monocytes # 0.6 K/mm3 (0.1-1.0); Monocytes % 5.4 % (1.7-9.3); Neutrophils # 6.4 K/mm3 (1.8-7.8); Neutrophils % 61.9 % (37.0-80.0); Platelet Count 309 K/mm3 (142-424); Red Blood Count 4.29 M/mm3 (4.20-5.40); Red Cell Distribution Width 13.7 % (11.5-17.5); White Blood Count 10.4 K/mm3 (4.8-10.8)
[2022-01-07 14:57] LABS: Hemoglobin A1C 6.7 % (4.0-6.0)
[2022-01-07 15:08] LABS: Albumin Level 4.1 g/dl (3.5-5.0); Anion Gap 13.7 mEq/L (5-15); Blood Urea Nitrogen 25 mg/dl (7-17); Calcium 9.2 mg/dl (8.4-10.2); Carbon Dioxide 24 mmol/L (22.0-30.0); Chloride 104 mmol/L (98-107); Creatine Kinase 74 U/L (30-135); Estimated Glomerular Filt Rate 34 ml/min (>60); GFR (African American) 41 ML/MIN (>60); Glucose 143 mg/dl (74-100); Phosphorous 4.5 mg/dl (2.5-4.5); Potassium 4.7 mmoL/L (3.5-5.1); Sodium 137 mmol/L (136-145)
[2022-01-07 15:19] LABS: Intact Parathyroid Hormone 199.4 pg/mL (7.5-53.5)
[2022-01-07 15:26] LABS: 25-OH Vitamin D, Total 35.2 ng/mL (30-100)
[2022-01-07 16:55] LABS: Appearance,Urine CLEAR (Clear); Bilirubin,Urine Negative (Negative); Blood, Urine Negative (Negative); Color,Urine YELLOW (Yellow); Glucose,Urine (UA) 2+ (Negative); Ketones,Urine Negative (Negative); Leukocyte Esterase,Urine 1+ (Negative); Nitrate,Urine Negative (Negative); PH,Urine 6.5 (5.0-8.5); Protein,Urine Negative (Negative); Specific Gravity, Urine 1.015 (1.005-1.030); Urobilinogen,Urine 0.2 EU/dl (0.2)
[2022-01-07 17:43] LABS: Creatinine,Urine Random 102 mg/dL (Not Estab.)
[2022-01-07 18:05] LABS: Squamous Epithelial Cell,Urine Occasional #/hpf (0-5); WBC,Urine 20-50 #/hpf (0-3)
[2022-01-09 16:54] LABS: Immunoglobulin A, Qn 347 mg/dL (64-422); Immunoglobulin G, Qn 1443 mg/dL (586-1602); Immunoglobulin M, Qn 110 mg/dL (26-217)
== END ==
PROVIDERS: PCP Nurse Practitioner Family; Visit Provider Hospitalist
DX: N28.9 Disorder of kidney and ureter, unspecified (principal); M54.50 Low back pain, unspecified; S39.92XA Unspecified injury of lower back, initial encounter; Z68.30 Body mass index [BMI] 30.0-30.9, adult; Z79.899 Other long term (current) drug therapy
CPT/HCPCS: 36415; 72110; 80069; 81001; 82306; 82550; 82570; 82784; 83036; 83970; 84155; 85025; 86334; 86335; 87086

== ENCOUNTER → 2022-01-26 08:56 | Outpatient (CLI) | payer MEDICARE, OTHER, SELFPAY ==
--- NOTE | 2022-01-26 09:07 | NM_ITS ---
FINAL REPORT CLINICAL HISTORY: SECONDARY RENAL HYPERPARATHYROIDISM 9:10AM 21.0 MCI TC SESTAMIBI FINDINGS: 21.0 mCi Technetium Sestamibi was administered. Planar imaging was performed early and two-hour delayed of the neck and upper thorax. Early imaging shows physiologic uptake within the upper neck involving the salivary glands and lower neck involving the thyroid gland. On delayed imaging there is no abnormal retained activity in the lower neck or mediastinum to localize parathyroid adenoma. IMPRESSION: No scintigraphic evidence of parathyroid adenoma. Reviewed, Interpreted and Dictated by Lawrence Peralta III, MD Transcribed by Christiano Gaxiola Authenticated and . [facility]
--- NOTE | 2022-01-26 09:18 | HMH.ITSHM ---
Current Home Medications as stated by this patient Lesli Dang or manufacturer's representative. []SPIRONOLACTONE SIMVASTATIN PAROXETINE MOMETASONE LOSARTAN LINAGLIPTIN LEVOTHYROXINE INSULIN DAPAGLIFLOZIN CLOPIDOGREL CETIRIZINE CARVEDILOL ASA ALBUTEROL
== END ==
PROVIDERS: PCP Nurse Practitioner Family
DX: N25.81 Secondary hyperparathyroidism of renal origin (principal)
CPT/HCPCS: 78070; A9500

== ENCOUNTER → 2022-02-26 12:41 | Outpatient (CLI) | payer MEDICARE, OTHER, SELFPAY ==
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
== END ==
PROVIDERS: PCP Nurse Practitioner Family; Visit Provider Nurse Practitioner Family
DX: M54.50 Low back pain, unspecified (principal); W19.XXXA Unspecified fall, initial encounter
CPT/HCPCS: 72148; 76376

== ENCOUNTER → 2022-06-04 11:58 | Outpatient (CLI) | payer MEDICARE, OTHER, SELFPAY ==
[2022-06-04 13:33] LABS: Albumin Level 3.9 g/dl (3.5-5.0); Blood Urea Nitrogen 15 mg/dl (7-17); Calcium 8.8 mg/dl (8.4-10.2); Carbon Dioxide 19 mmol/L (22.0-30.0); Chloride 110 mmol/L (98-107); Estimated Glomerular Filt Rate 40 ml/min (>60); GFR (African American) 48 ML/MIN (>60); Glucose 105 mg/dl (74-100); Phosphorous 5.2 mg/dl (2.5-4.5); Sodium 139 mmol/L (136-145)
[2022-06-04 13:40] LABS: Creatinine,Urine Random 87 mg/dL (Not Estab.)
[2022-06-04 13:43] LABS: Intact Parathyroid Hormone 191.4 pg/mL (7.5-53.5)
== END ==
PROVIDERS: PCP Nurse Practitioner Family
DX: N18.32 Chronic kidney disease, stage 3b (principal); N25.81 Secondary hyperparathyroidism of renal origin
CPT/HCPCS: 36415; 80069; 82570; 83970; 84155

== ENCOUNTER → 2022-08-21 13:32 | Outpatient (CLI) | payer MEDICARE, OTHER, SELFPAY ==
--- NOTE | 2022-08-21 | CA_ITS ---
FINAL REPORT TECHNIQUE: Graded compression, spectral analysis and ultrasound images of the venous system of the upper extremity were obtained. CLINICAL HISTORY: Left arm swelling. Denies trauma. Smoker, HLD, HTN, SOB, DM, CAD with cardiac stents. COMPARISON: None FINDINGS: The jugular vein, subclavian vein, axillary vein, brachial vein, cephalic vein and basilic venous system are fully compressible and demonstrate no evidence of thrombosis. IMPRESSION: No evidence of thrombosis of the venous system of the left upper extremity. Reviewed, Interpreted and Dictated by Lawrence Peralta III, MD Transcribed by Kailee Rucker Authenticated and [facility]
== END ==
PROVIDERS: PCP Nurse Practitioner Family; Visit Provider Nurse Practitioner Family
DX: M79.602 Pain in left arm (principal)
CPT/HCPCS: 93971

== ENCOUNTER → 2022-09-21 10:30 | Outpatient (CLI) | payer MEDICARE, OTHER, SELFPAY ==
[2022-09-21 10:38] LABS: Microscopic, Urine URINE MICROSCOPIC (MICROSCOPIC)
[2022-09-21 11:00] LABS: Appearance,Urine SL CLOUDY (Clear); Bilirubin,Urine Negative (Negative); Blood, Urine TRACE-I (Negative); Color,Urine YELLOW (Yellow); Glucose,Urine (UA) 3+ (Negative); Ketones,Urine Negative (Negative); Leukocyte Esterase,Urine 2+ (Negative); Nitrate,Urine Negative (Negative); Protein,Urine Negative (Negative); Urobilinogen,Urine 0.2 EU/dl (0.2)
[2022-09-21 11:11] LABS: Creatinine,Urine Random 103 mg/dL (Not Estab.)
[2022-09-21 11:13] LABS: Bacteria,Urine 2+ /lpf; RBC,Urine Occasional #/hpf (0-3)
[2022-09-21 11:29] LABS: Basophils # 0.1 K/mm3 (0-0.2); Basophils % 0.6 % (0.1-2.0); Eosinophils # 0.4 K/mm3 (0.0-0.4); Hematocrit 41.2 % (37.0-47.0); Hemoglobin 13.5 g/dL (12.2-16.2); Lymphocytes # 3.7 K/mm3 (0.7-4.5); Lymphocytes % 34.1 % (10-50); Mean Corpuscular HGB Conc 32.7 g/dL (31.8-35.4); Mean Corpuscular Hemoglobin 30.7 pg (27.0-31.2); Mean Platelet Volume 8.3 fl (7.4-10.4); Monocytes # 0.8 K/mm3 (0.1-1.0); Monocytes % 6.9 % (1.7-9.3); Neutrophils # 5.9 K/mm3 (1.8-7.8); Neutrophils % 54.4 % (37.0-80.0); Platelet Count 300 K/mm3 (142-424); Red Blood Count 4.38 M/mm3 (4.20-5.40); Red Cell Distribution Width 13.2 % (11.5-17.5); White Blood Count 10.8 K/mm3 (4.8-10.8)
[2022-09-21 11:48] LABS: Albumin Level 3.9 g/dl (3.5-5.0); Anion Gap 15.2 mEq/L (5-15); Blood Urea Nitrogen 19 mg/dl (7-17); Calcium 9.1 mg/dl (8.4-10.2); Carbon Dioxide 19 mmol/L (22.0-30.0); Chloride 109 mmol/L (98-107); Estimated Glomerular Filt Rate 44 ml/min (>60); GFR (African American) 53 ML/MIN (>60); Glucose 152 mg/dl (74-100); Phosphorous 4.8 mg/dl (2.5-4.5); Potassium 4.2 mmoL/L (3.5-5.1); Sodium 139 mmol/L (136-145)
[2022-09-21 12:05] LABS: 25-OH Vitamin D, Total 61.7 ng/mL (30-100)
== END ==
PROVIDERS: PCP Nurse Practitioner Family; Visit Provider Hospitalist
DX: N25.81 Secondary hyperparathyroidism of renal origin (principal); N18.32 Chronic kidney disease, stage 3b; R82.90 Unspecified abnormal findings in urine
CPT/HCPCS: 36415; 80069; 81001; 82306; 82570; 83970; 84155; 85025; 87086

== ENCOUNTER → 2023-04-02 13:45 | Outpatient (POV) | payer MEDICARE, OTHER, SELFPAY ==
[2023-04-02 15:56] VITALS: BP 112/41; PULSE 59; RESP 18; O2SAT 93; BMI 31.8
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
== END ==
PROVIDERS: PCP Nurse Practitioner Family; Visit Provider Nurse Practitioner Family
DX: M51.36 Other intervertebral disc degeneration, lumbar region (principal); M47.816 Spondylosis without myelopathy or radiculopathy, lumbar region; M54.50 Low back pain, unspecified; G89.29 Other chronic pain
CPT/HCPCS: 99202; G0463

== ENCOUNTER 2023-04-06 14:08 | Outpatient (CLI) | payer MEDICARE, OTHER, SELFPAY ==
[2023-04-06 15:06] LABS: Basophils # 0.1 K/mm3 (0-0.2); Basophils % 0.6 % (0.1-2.0); Eosinophils # 0.3 K/mm3 (0.0-0.4); Eosinophils % 3.7 % (0.1-12.0); Hematocrit 41.3 % (37.0-47.0); Hemoglobin 13.4 g/dL (12.2-16.2); Lymphocytes # 2.2 K/mm3 (0.7-4.5); Lymphocytes % 23.5 % (10-50); Mean Corpuscular HGB Conc 32.4 g/dL (31.8-35.4); Mean Corpuscular Hemoglobin 32.6 pg (27.0-31.2); Mean Corpuscular Volume 100.7 fl (81-99); Mean Platelet Volume 8.9 fl (7.4-10.4); Monocytes # 0.6 K/mm3 (0.1-1.0); Monocytes % 5.9 % (1.7-9.3); Neutrophils # 6.1 K/mm3 (1.8-7.8); Neutrophils % 66.3 % (37.0-80.0); Platelet Count 257 K/mm3 (142-424); Red Blood Count 4.11 M/mm3 (4.20-5.40); Red Cell Distribution Width 13.1 % (11.5-17.5); White Blood Count 9.2 K/mm3 (4.8-10.8)
[2023-04-06 15:39] LABS: Alanine Aminotransferase 28 U/L (12-78); Albumin Level 3.6 g/dl (3.5-5.0); Alkaline Phosphatase 82 U/L (38-126); Anion Gap 12.6 mEq/L (5-15); Aspartate Amino Transferase 25 U/L (14-36); Bilirubin,Direct 0.3 mg/dl (0.0-0.4); Bilirubin,Indirect 0.1 mg/dL (0.0-0.9); Bilirubin,Total 0.4 mg/dl (0.2-1.3); Bilirubin,Unconjugated 0.1 mg/dL (0.0-1.1); Blood Urea Nitrogen 18 mg/dl (7-17); Calcium 9.1 mg/dl (8.4-10.2); Carbon Dioxide 21 mmol/L (22.0-30.0); Chloride 111 mmol/L (98-107); Chol/HDL Ratio 4.8 (1-3.5); Cholesterol 143 mg/dl (140-200); Estimated Glomerular Filt Rate 43 ml/min (>60); GFR (African American) 53 ML/MIN (>60); Glucose 109 mg/dl (74-100); HDL Cholesterol 30 mg/dl (40-60); Potassium 4.6 mmoL/L (3.5-5.1); Sodium 140 mmol/L (136-145); Total Protein,Serum 6.9 g/dl (6.3-8.2); Triglycerides 115 mg/dl (30-150); VLDL Cholesterol 23 mg/dL (0-40)
[2023-04-06 15:51] LABS: Direct LDL Cholesterol 77.01 mg/dL (100-129)
[2023-04-06 15:56] LABS: Free T4 (Free Thyroxine) 1.01 ng/dl (0.78-2.19)
[2023-04-06 16:12] LABS: Thyroid Stimulating Hormone 2.32 uIU/mL (0.465-4.68)
== END 2023-04-06 23:59 ==
LOC: LAB 14:09
PROVIDERS: PCP Family Medicine; Visit Provider Internal Medicine
DX: E78.5 Hyperlipidemia, unspecified (principal); I11.9 Hypertensive heart disease without heart failure; I25.10 Atherosclerotic heart disease of native coronary artery without angina pectoris; R06.00 Dyspnea, unspecified; K21.9 Gastro-esophageal reflux disease without esophagitis; E11.9 Type 2 diabetes mellitus without complications; Z79.4 Long term (current) use of insulin
CPT/HCPCS: 36415; 80048; 80061; 80076; 84439; 84443; 85025

== ENCOUNTER 2024-04-06 14:48 | Outpatient (CLI) | payer MEDICARE, OTHER, SELFPAY ==
[2024-04-06 15:32] LABS: Basophils # 0.1 K/mm3 (0-0.2); Basophils % 0.8 % (0.1-2.0); Eosinophils # 0.4 K/mm3 (0.0-0.4); Eosinophils % 2.8 % (0.1-12.0); Hematocrit 39.5 % (37.0-47.0); Hemoglobin 13.3 g/dL (12.2-16.2); Lymphocytes # 3.2 K/mm3 (0.7-4.5); Lymphocytes % 22.1 % (10-50); Mean Corpuscular HGB Conc 33.7 g/dL (31.8-35.4); Mean Corpuscular Hemoglobin 31.1 pg (27.0-31.2); Mean Corpuscular Volume 92.3 fl (81-99); Mean Platelet Volume 10.2 fl (7.4-10.4); Monocytes # 0.9 K/mm3 (0.1-1.0); Monocytes % 6.4 % (1.7-9.3); Neutrophils # 9.8 K/mm3 (1.8-7.8); Neutrophils % 67.3 % (37.0-80.0); Platelet Count 249 K/mm3 (142-424); Red Blood Count 4.28 M/mm3 (4.20-5.40); Red Cell Distribution Width 12.7 % (11.5-17.5); White Blood Count 14.6 K/mm3 (4.8-10.8)
[2024-04-06 15:55] LABS: Alanine Aminotransferase 33 U/L (12-78); Alkaline Phosphatase 84 U/L (38-126); Anion Gap 11.2 mEq/L (5-15); Aspartate Amino Transferase 36 U/L (14-36); Bilirubin,Direct 0.2 mg/dl (0.0-0.4); Bilirubin,Indirect 0.2 mg/dL (0.0-0.9); Bilirubin,Total 0.4 mg/dl (0.2-1.3); Bilirubin,Unconjugated 0.2 mg/dL (0.0-1.1); Blood Urea Nitrogen 16 mg/dl (7-17); Calcium 9.1 mg/dl (8.4-10.2); Carbon Dioxide 23 mmol/L (22.0-30.0); Chloride 108 mmol/L (98-107); Chol/HDL Ratio 4.4 (1-3.5); Cholesterol 161 mg/dl (140-200); Estimated Glomerular Filt Rate 48 ml/min (>60); GFR (African American) 58 ML/MIN (>60); Glucose 118 mg/dl (74-100); HDL Cholesterol 37 mg/dl (40-60); Potassium 4.2 mmoL/L (3.5-5.1); Sodium 138 mmol/L (136-145); Triglycerides 187 mg/dl (30-150); VLDL Cholesterol 37 mg/dL (0-40)
[2024-04-06 16:06] LABS: Direct LDL Cholesterol 75.74 mg/dL (100-129)
[2024-04-06 16:11] LABS: Free T4 (Free Thyroxine) 1.06 ng/dl (0.78-2.19)
== END 2024-04-06 23:59 | disposition home or self-care (01) ==
LOC: LAB 14:50
PROVIDERS: PCP Family Medicine; Visit Provider Internal Medicine
DX: E78.5 Hyperlipidemia, unspecified (principal); I11.9 Hypertensive heart disease without heart failure; I25.10 Atherosclerotic heart disease of native coronary artery without angina pectoris; F17.210 Nicotine dependence, cigarettes, uncomplicated
CPT/HCPCS: 36415; 80048; 80061; 80076; 84439; 84443; 85025

== ENCOUNTER 2024-08-31 14:15 | Outpatient (CLI) | payer MEDICARE, OTHER, SELFPAY ==
--- OUTSIDE RECORDS SUMMARY | 2009-10-22 07:30 | XMS_ITS | Continuity of Care Document ---
Author Name [facility] Organization [facility] Care Team Providers Care Clinical Project Assistant Name Role Phone [facility] Unavailable Unavailable Problems Combined list of problems from Department of [facility] and [facility] facilities. It does not include entries that were removed or entered in error. 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 It does not include entries that were removed or entered in error. Substance Category Reaction Severity Reaction type Status Date Reported Comments Source PENICILLIN Propensity to adverse reactions to drug (finding) HIVES active 0 [facility] Propensity to adverse reactions to drug (finding) active 0 [facility] Immunizations Combined list of available immunizations from the Department [facility] and [facility] facilities. Immunization Series Date Given Administered By Site Reaction Lot Number CVX Code Drug Clinical Rn Liaison Status Comments Source PNEUMOCOCCAL, UNSPECIFIED FORMULATION 2009 [...] complet ed [place] [facility] Social History Combined list of available smoking, tobacco, and other social history from Department of Defense and [facility] 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 Social History Type Response Date Comment Source Tobacco smoking status NHIS V9 CURRENT TOBACCO USER 01/29/2009 [facility] History of tobacco use TOBACCO OFFERRED PT MEDS (PROVIDER) 01/29/2009 [facility] History of tobacco use V9 CURRENT TOBACCO USER 03/30/2008 [facility] History of tobacco use V9 CURRENT TOBACCO USER 03/25/2007 [facility] History of tobacco use V9 CURRENT TOBACCO USER 05/13/2006 [facility] History of tobacco use HF V9 SECOND TOBACCO SPRINKLER FITTER 11/10/2005 10 cigs a day [facility] History of tobacco use HF V9 CURRENT SMOKER 01/14/2005 [facility] History of tobacco use HF V9 THIRD TOBACCO SPRINKLER FITTER 10/27/2004 less than 1 pack a day [facility] History of tobacco use HF V9 SECOND TOBACCO SPRINKLER FITTER 08/14/2004 1/2ppd [facility] History of tobacco use HF V9 CURRENT SMOKER 12/17/2003 less than 1 pack a day [facility] History of tobacco use HF V9 SECOND TOBACCO SPRINKLER FITTER 06/20/2003 smokes 1/2 to 1 pack per day [facility] History of tobacco use HF V9 CURRENT SMOKER 11/10/2002 smokes 3/4 pack per day [facility] History of tobacco use HF V9 THIRD TOBACCO SPRINKLER FITTER 05/19/2002 smokes 1/2 pack per day [facility] History of tobacco use HF V9 SECOND TOBACCO SPRINKLER FITTER 11/09/2001 10-15 cigs a day [facility] History of tobacco use HF V9 CURRENT SMOKER 06/23/2001 smokes 3/4 pack per day [facility] History of tobacco use HF V9 THIRD TOBACCO SPRINKLER FITTER 05/10/2001 smokes 1/2 pack per day [facility] History of tobacco use HF V9 SECOND TOBACCO SPRINKLER FITTER 11/09/2000 1/2 pk a day x 20 yrs [facility] History of tobacco use HF V9 CURRENT SMOKER 06/18/2000 1ppd [facility]
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
== END 2024-08-31 23:59 | disposition home or self-care (01) ==
LOC: RT 14:16
PROVIDERS: PCP Nurse Practitioner; Visit Provider Nurse Practitioner
DX: M71.22 Synovial cyst of popliteal space [Baker], left knee (principal); T14.90XA Injury, unspecified, initial encounter; V80.018A Animal-rider injured by fall from or being thrown from other animal in noncollision accident, initial encounter
CPT/HCPCS: 93971

== ENCOUNTER 2024-09-18 14:49 | Emergency (ER) | payer MEDICARE, OTHER, SELFPAY ==
--- OUTSIDE RECORDS SUMMARY | 2009-10-22 07:30 | XMS_ITS | Continuity of Care Document ---
Author Name [facility] Organization [facility] Care Team Providers Care Cafeteria Food Server Name Role Phone [facility] Unavailable Unavailable Problems Combined list of problems from Department of [facility] and [facility] facilities. It does not include entries that were removed or entered in error. 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 It does not include entries that were removed or entered in error. Substance Category Reaction Severity Reaction type Status Date Reported Comments Source PENICILLIN Propensity to adverse reactions to drug (finding) HIVES active 0 [facility] Propensity to adverse reactions to drug (finding) active 0 [facility] Immunizations Combined list of available immunizations from the Department [facility] and [facility] facilities. Immunization Series Date Given Administered By Site Reaction Lot Number CVX Code Drug Concentrator Operator Status Comments Source PNEUMOCOCCAL, UNSPECIFIED FORMULATION 2009 109 complet ed [place] [facility] INFLUENZA A & B (HISTORICAL) 2008 88 complet ed [place] [facility] FLU,3 YRS (HISTORICAL) 2008 JENA LUNDBERG 88 complet ed [place] [facility] FLU,3 YRS (HISTORICAL) 2008 88 complet ed [place] [facility] INFLUENZA A & B (HISTORICAL) 2005 88 complet ed [place] [facility] FLU,3 YRS (HISTORICAL) 2004 BARRERA DAVISON 88 comple t ed [place] FLU,3 YRS (HISTORICAL) 2002 MANUELITO MONTANA 88 complet ed [place] INFLUENZA, UNSPECIFIED FORMULATION 2001 88 complet ed [place] [facility] FLU,3 YRS (HISTORICAL) 2001 MANUELITO MONTANA 88 complet ed [place] FLU,3 YRS (HISTORICAL) 2000 MICHELLE RUANO 88 comple t ed [place] TD(ADULT) UNSPECIFIED FORMULATION 1996 139 complet ed [place] [facility] Social History Combined list of available smoking, tobacco, 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 Social History Type Response Date Comment Source Tobacco smoking status NHIS V9 CURRENT TOBACCO USER 01/29/2009 [facility] History of tobacco use TOBACCO OFFERRED PT MEDS (PROVIDER) 01/29/2009 [facility] History of tobacco use V9 CURRENT TOBACCO USER 03/30/2008 [facility] History of tobacco use V9 CURRENT TOBACCO USER 03/25/2007 [facility] History of tobacco use V9 CURRENT TOBACCO USER 05/13/2006 [facility] History of tobacco use HF V9 SECOND TOBACCO BAR STEWARD 11/10/2005 10 cigs a day [facility] History of tobacco use HF V9 CURRENT SMOKER 01/14/2005 [facility] History of tobacco use HF V9 THIRD TOBACCO BAR STEWARD 10/27/2004 less than 1 pack a day [facility] History of tobacco use HF V9 SECOND TOBACCO BAR STEWARD 08/14/2004 1/2ppd [facility] History of tobacco use HF V9 CURRENT SMOKER 12/17/2003 less than 1 pack a day [facility] History of tobacco use HF V9 SECOND TOBACCO BAR STEWARD 06/20/2003 smokes 1/2 to 1 pack per day [facility] History of tobacco use HF V9 CURRENT SMOKER 11/10/2002 smokes 3/4 pack per day [facility] History of tobacco use HF V9 THIRD TOBACCO BAR STEWARD 05/19/2002 smokes 1/2 pack per day [facility] History of tobacco use HF V9 SECOND TOBACCO BAR STEWARD 11/09/2001 10-15 cigs a day [facility] History of tobacco use HF V9 CURRENT SMOKER 06/23/2001 smokes 3/4 pack per day [facility] History of tobacco use HF V9 THIRD TOBACCO BAR STEWARD 05/10/2001 smokes 1/2 pack per day [facility] History of tobacco use HF V9 SECOND TOBACCO BAR STEWARD 11/09/2000 1/2 pk a day x 20 yrs [facility] History of tobacco use HF V9 CURRENT SMOKER 06/18/2000 1ppd [facility]
[2024-09-18 15:15] VITALS: BP 118/65; PULSE 70; O2SAT 93
[2024-09-18 15:17] VITALS: BP 112/93; PULSE 71; RESP 16; TEMP 36.7; O2SAT 94; BMI 31.1
--- OUTSIDE RECORDS SUMMARY | 2024-09-18 15:20 | XMS_ITS ---
Author Organization Unknown Problems Date Problem Result OnSetDate Icd10 SnomedCode Severity Cu stom 08/07/2024 00:00:00 COPD exacerbation J44.1 08/10/2024 00:00:00 Cough, unspecified type R05.9 [id number] 08/23/2024 00:00:00 Hypertension I10
--- NOTE | 2024-09-18 15:24 | XR_ITS ---
FINAL REPORT CLINICAL HISTORY: pain all over , fall x 3 weeks ago COMPARISON: None FINDINGS: Three views of the left knee were obtained. There is no acute fracture or dislocation. The joint spaces are intact. Osteopenia is noted. There is no acute soft tissue abnormality. IMPRESSION: No acute abnormality identified. Reviewed, Interpreted and Dictated by Alana Macedo MD Transcribed by Kailee Rucker Authenticated and [facility]
--- NOTE | 2024-09-18 15:24 | XR_ITS ---
FINAL REPORT CLINICAL HISTORY: knee pain, fall x 3 weeks ago COMPARISON: None FINDINGS: Two views of the left tibia/fibula were obtained. There is no acute fracture or dislocation. Osteopenia is noted. The joint spaces are intact. There is no soft tissue abnormality. IMPRESSION: No acute process. Reviewed, Interpreted and Dictated by Alana Macedo MD Transcribed by Kailee Rucker Authenticated and [facility]
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
[2024-09-18 16:01] VITALS: BP 112/93; PULSE 70; RESP 18; TEMP 36.7; O2SAT 95
--- NOTE | 2024-09-18 16:55 | PC.NURSE ---
OUTPT ORDER FAXED TO SCHEDULING FOR DOPPLER, CARE MANAGEMENT NOTIFIED AND WILL AUTHORIZE ORDER. SCHEDULING WILL NOTIFY PT OF DOPPLER APPT
== END 2024-09-18 16:01 | disposition home or self-care (01) ==
PROVIDERS: Emergency Provider Student in an Organized Health Care Education/Training Program; PCP Nurse Practitioner
DX: M25.562 Pain in left knee (principal); R60.0 Localized edema; F17.210 Nicotine dependence, cigarettes, uncomplicated
CPT/HCPCS: 73562; 73590; 99283

== ENCOUNTER 2024-09-21 14:29 | Outpatient (CLI) | payer MEDICARE, OTHER, SELFPAY ==
--- OUTSIDE RECORDS SUMMARY | 2009-10-22 07:30 | XMS_ITS | Continuity of Care Document ---
Author Name [facility] Organization [facility] Care Team Providers Care Regional Training Manager Name Role Phone [facility] Unavailable Unavailable Problems Combined list of problems from Department of [facility] and [facility] facilities. It does not include entries that were removed or entered in error. 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 It does not include entries that were removed or entered in error. Substance Category Reaction Severity Reaction type Status Date Reported Comments Source PENICILLIN Propensity to adverse reactions to drug (finding) HIVES active 0 [facility] S[facility]FA [facility] Propensity to adverse reactions to drug (finding) active 0 [facility] Immunizations Combined list of available immunizations from the Department [facility] and [facility] facilities. Immunization Series Date Given Administered By Site Reaction Lot Number CVX Code Drug Tubing Assembler Status Comments Source PNEUMOCOCCAL, UNSPECIFIED FORMULATION 2009 109 complet ed [place] [facility] INFLU[facility] A & B (HISTORICAL) 2008 88 complet ed [place] [facility] FLU,3 YRS (HISTORICAL) 2008 JENA LUNDBERG 88 complet ed [place] [facility] FLU,3 YRS (HISTORICAL) 2008 88 complet ed [place] [facility] INFLUENZA A & B (HISTORICAL) 2005 88 complet ed [place] [facility] FLU,3 YRS (HISTORICAL) 2004 BARRERA DAVISON 88 comple t ed [place] FLU,3 YRS (HISTORICAL) 2002 MANUELITO MONTANA 88 complet ed [place] INFLUENZA, UNSPECIFIED FORMULATION 2001 88 complet ed [place] [facility] [place] FLU,3 YRS (HISTORICAL) 2001 MANUELITO MONTANA 88 complet ed [place] FLU,3 YRS (HISTORICAL) 2000 MICHELLE RUANO 88 comple t ed [place] TD(ADULT) UNSPECIFIED FORMULATION 1996 139 complet ed [place] [facility] Social History Combined list of available smoking, tobacco, and other social history from Department of Defense and [facility] 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 Social History Type Response Date Comment Source Tobacco smoking status NHIS V9 CURRENT TOBACCO USER 01/29/2009 [facility] History of tobacco use TOBACCO OFFERRED PT MEDS (PROVIDER) 01/29/2009 [facility] History of tobacco use V9 CURRENT TOBACCO USER 03/30/2008 [facility] History of tobacco use V9 CURRENT TOBACCO USER 03/25/2007 [facility] History of tobacco use V9 CURRENT TOBACCO USER 05/13/2006 [facility] History of tobacco use HF V9 SECOND TOBACCO ELECTRIC TRAIN DRIVER 11/10/2005 10 cigs a day [facility] History of tobacco use HF V9 CURRENT SMOKER 01/14/2005 [facility] History of tobacco use HF V9 THIRD TOBACCO ELECTRIC TRAIN DRIVER 10/27/2004 less than 1 pack a day [facility] History of tobacco use HF V9 SECOND TOBACCO ELECTRIC TRAIN DRIVER 08/14/2004 1/2ppd [facility] History of tobacco use HF V9 CURRENT SMOKER 12/17/2003 less than 1 pack a day [facility] History of tobacco use HF V9 SECOND TOBACCO ELECTRIC TRAIN DRIVER 06/20/2003 smokes 1/2 to 1 pack per day [facility] History of tobacco use HF V9 CURRENT SMOKER 11/10/2002 smokes 3/4 pack per day [facility] History of tobacco use HF V9 THIRD TOBACCO ELECTRIC TRAIN DRIVER 05/19/2002 smokes 1/2 pack per day [facility] History of tobacco use HF V9 SECOND TOBACCO ELECTRIC TRAIN DRIVER 11/09/2001 10-15 cigs a day [facility] History of tobacco use HF V9 CURRENT SMOKER 06/23/2001 smokes 3/4 pack per day [facility] History of tobacco use HF V9 THIRD TOBACCO ELECTRIC TRAIN DRIVER 05/10/2001 smokes 1/2 pack per day [facility] History of tobacco use HF V9 SECOND TOBACCO ELECTRIC TRAIN DRIVER 11/09/2000 1/2 pk a day x 20 yrs [facility] History of tobacco use HF V9 CURRENT SMOKER 06/18/2000 1ppd [facility]
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
== END 2024-09-21 23:59 | disposition home or self-care (01) ==
LOC: RT 14:30
PROVIDERS: PCP Nurse Practitioner; Visit Provider Student in an Organized Health Care Education/Training Program
DX: S89.92XA Unspecified injury of left lower leg, initial encounter (principal); R60.1 Generalized edema; V89.9XXA Person injured in unspecified vehicle accident, initial encounter
CPT/HCPCS: 93971